=== PATIENT | male | born 1955 | race Caucasian/White ===

== ENCOUNTER 2023-03-08 14:37 | Outpatient (CLI) | payer MEDICARE | END 2023-03-08 14:38 | disposition home or self-care (01) | LOC: CSHRAD 14:37 | PROVIDERS: ATTEND Family Medicine | DX: D72.828 Other elevated white blood cell count (principal) | CPT/HCPCS: 71046 ==

== ENCOUNTER 2024-03-10 13:34 | Outpatient (CLI) | payer MEDICARE | END 2024-03-10 13:35 | disposition home or self-care (01) | LOC: CSHULT 13:34 | PROVIDERS: ATTEND Family Medicine | DX: R31.0 Gross hematuria (principal); N28.1 Cyst of kidney, acquired | CPT/HCPCS: 76770 ==

== ENCOUNTER 2024-03-11 17:40 | Emergency (ER) | payer MEDICARE ==
[2024-03-11 18:37] LABS: #Basophils 0.08 10x3/uL (0.0-0.2); #Eosinphils 0.16 10x3/uL (0.0-0.5); #Monocytes 0.68 10x3/uL (0.0-1.1); #Neutrophils 8.56 10x3/uL (1.5-8.4); %Basophils 0.7 % (0.0-2.0); %Eosinophils 1.5 % (0.0-6.0); %Lymphocytes 12.9 % (18.0-47.0); %Monocytes 6.2 % (0.0-10.0); %Neutrophils 78.3 % (40.0-75.0); Hematocrit 40.8 % (38.8-50.0); Hemoglobin 12.6 g/dL (13.5-17.5); Mean Corpuscular HGB CONC 30.9 g/dL (32.0-36.0); Mean Corpuscular Hemoglobin 29.9 pg (27.0-33.0); Mean Corpuscular Volume 96.7 fL (81.2-95.1); Mean Platelet Volume 10.7 fL (7.4-10.4); Platelet Count 266 10x3/uL (150-450); RBC Distribution Width 14.8 % (11.5-14.5); Red Blood Cell (RBC) Count 4.22 10x6/uL (4.32-5.72); White Blood Cell (WBC) Count 10.9 10x3/uL (3.5-10.5)
[2024-03-11 18:40] LABS: ALT (SGPT) 12 U/L (8-55); AST (SGOT) 19 U/L (5-34); Albumin 3.7 g/dL (3.4-4.8); Alkaline Phosphatase 85 U/L (40-110); Anion Gap 14 mmol/L (10-20); BUN (Urea Nitrogen) 19 mg/dL (8.4-25.7); Bilirubin, Total 0.3 mg/dL (0.2-1.2); Calc. Creatinine Clearance 0 mL/min (70-130); Calcium 8.9 mg/dL (7.8-10.44); Carbon Dioxide 21 mmol/L (23-31); Chloride 103 mmol/L (98-107); Estimated GFR 61; Globulin 3.6 g/dL (2.4-3.5); Glucose 120 mg/dL (80-115); Potassium 4.4 mmol/L (3.5-5.1); Protein, Total 7.3 g/dL (5.8-8.1); Sodium 134 mmol/L (136-145)
[2024-03-11 18:43] LABS: Bilirubin Neg (Negative); Blood, Urine 250 (Negative); Clarity Slightly Cloudy (Clear); Glucose, Urine (Dipstick) Normal (Negative); Ketone, Urine Negative (Negative); Leukocyte 500 (Negative); Nitrite Negative (Negative); Protein, Urine (Dipstick) 15 mg/dl (Neg-Trace); Urobilinogen Normal mg/dL (Less than 2); pH, Urine 6.5 (5.0-9.0)
[2024-03-11 18:56] LABS: CAUTI Indications for Culture Pelvic or flank pain; Squamous Epithelial 0-3 HPF (0-3)
[2024-03-11 18:57] LABS: Bacteria/HPF Rare-Few HPF (None Seen); Urine Culture Reflex Yes Yes; White Blood Cell Cast 0-3 LPF (None Seen)
[2024-03-11 19:20] LABS: Platelet Adequacy Comment Appears Adequate
== END 2024-03-11 19:30 | disposition home or self-care (01) ==
LOC: CSHERS 17:40
DX: R31.9 Hematuria, unspecified (principal); I10 Essential (primary) hypertension
CPT/HCPCS: 36415; 80053; 81001; 85025; 87086; 99283

== ENCOUNTER 2024-07-24 07:12 | Outpatient (CLI) | payer MEDICARE ==
[2024-07-24] MEDS ORDERED: Iopamidol 370 76% 100 ML VIAL ONE (12:59)
== END 2024-07-24 07:13 | disposition home or self-care (01) ==
LOC: CSHCT 07:12
PROVIDERS: ATTEND Urology
DX: R31.0 Gross hematuria (principal); R91.1 Solitary pulmonary nodule; N28.89 Other specified disorders of kidney and ureter; N32.89 Other specified disorders of bladder; K63.89 Other specified diseases of intestine
CPT/HCPCS: 36415; 74178; 82565 ×2; Q9967